=== PATIENT | female | born 1955 | race Caucasian/White ===

== ENCOUNTER → 2020-07-09 | Outpatient (REF) | LOC: LAB 09:40 | DX: E03.9 Hypothyroidism, unspecified (principal); M85.80 Other specified disorders of bone density and structure, unspecified site; R73.03 Prediabetes ==

== ENCOUNTER → 2020-09-22 | Outpatient (REF) | LOC: LAB 09:27 | DX: E78.2 Mixed hyperlipidemia (principal); Z86.39 Personal history of other endocrine, nutritional and metabolic disease ==

== ENCOUNTER → 2021-03-24 | Outpatient (REF) | LOC: LAB 07:07 | DX: E78.2 Mixed hyperlipidemia (principal) ==

== ENCOUNTER → 2021-07-14 | Outpatient (CLI) | payer BC ==
[2021-07-14 16:47] LABS: ALBUMIN 4.4 g/dL (3.4-4.8)
[2021-07-14 16:49] LABS: TOTAL PROTEIN 7.3 g/dL (6.2-8.1)
[2021-07-14 16:51] LABS: TOTAL BILIRUBIN 0.7 mg/dL (0.2-1.2)
[2021-07-14 16:55] LABS: DIRECT BILIRUBIN 0.2 mg/dL (0.0-0.5)
== END ==
LOC: LAB 07:13
PROVIDERS: Family Medicine
DX: E78.2 Mixed hyperlipidemia (principal)

== ENCOUNTER → 2022-01-16 | Outpatient (CLI) | payer BC ==
[2022-01-16 10:35] LABS: ALBUMIN 4.3 g/dL (3.4-4.8)
[2022-01-16 10:37] LABS: TOTAL PROTEIN 7.1 g/dL (6.2-8.1)
[2022-01-16 10:39] LABS: TOTAL BILIRUBIN 0.8 mg/dL (0.2-1.2)
[2022-01-16 10:42] LABS: DIRECT BILIRUBIN 0.2 mg/dL (0.0-0.5)
== END ==
LOC: LAB 08:08
PROVIDERS: Family Medicine
DX: E78.2 Mixed hyperlipidemia (principal); E11.9 Type 2 diabetes mellitus without complications